=== PATIENT | female | born 1985 | race Caucasian/White ===

== ENCOUNTER 2020-09-26 20:53 | Emergency (ER) | payer OTHER ==
[~2020-09-26] VITALS: Ht 149.9 cm; Wt 75.5 kg
[2020-09-26 21:46] LABS: HEMATOCRIT 42.2 % (37.0-47.0); HEMOGLOBIN 13.6 g/dl (12.0-16.0); IMMATURE GRANULOCYTES 0.3 % (0.0-5.0); MEAN CELL VOLUME 87.9 fL CALC (80.0-100.0); MEAN CORPUSCULAR HGB 28.3 pG CALC (26.0-32.0); MEAN CORPUSCULAR HGB CONC 32.2 g/dL CAL (32.0-36.0); NEUT# 3.99 thou/uL (2.00-7.15); RED BLOOD COUNT 4.8 mill/uL (4.20-5.60); RED CELL DISTRI WIDTH 12.1 % (11.5-15.5)
[2020-09-26 21:48] LABS: URINE BILIRUBIN - DIPSTICK NEGATIVE (NEGATIVE); URINE BLOOD DIPSTICK TRACE-INTACT (NEGATIVE); URINE COLOR YELLOW; URINE GLUCOSE - DIPSTICK 250 mg/dL (NEGATIVE); URINE KETONE NEGATIVE (NEGATIVE); URINE LEUK ESTERASE NEGATIVE (NEGATIVE); URINE PROTEIN - DIPSTICK 30 mg/dL (NEG-TRACE); URINE UROBILINOGEN - DIPSTICK 0.2 E.U./dL (0.2)
[2020-09-26 21:49] LABS: URINE NITRITE - DIPSTICK NEGATIVE (Negative)
[2020-09-26 22:06] LABS: ALBUMIN 3.6 g/dL (3.2-5.0); ALKALINE PHOSPHATASE 106 u/l (38-126); ANION GAP 16 (6-22 (CALC)); BILIRUBIN, TOTAL 0.3 mg/dL (0.0-1.4); BUN 5 mg/dL (7-17); BUN/CREATININE RATIO 10 (12-20 (CALC)); CARBON DIOXIDE 22 mmol/l (22-30); CHLORIDE 96 mmol/l (95-108); CREATININE 0.5 mg/dL (0.5-1.0); GFR > 60 ML/MIN (>=60 (CALC)); GFR FOR AFR.AMER. > 60 ML/MIN (>=60 (CALC)); SGOT/AST 35 u/l (14-36); SODIUM 130 mmol/l (137-146); TOTAL PROTEIN 6.9 g/dL (6.3-8.2)
[2020-09-26 22:22] LABS: URINE SQUAMOUS EPITHELIAL CELL FEW EPI/hpf (0-FEW); URINE WBC 0-2 WBC/hpf (0-5)
[2020-09-26] MEDS ORDERED: METFORMIN HCL1000 M1 PO (23:13)
[2020-09-26] MEDS ORDERED: HUMULIN N100 UNIT/M SC (23:13)
[2020-09-26] MEDS ORDERED: PHENERGAN25 MG RE (23:13)
[2020-09-26 23:30] VITALS: BP 134/80
== END 2020-09-26 23:33 | disposition home or self-care (01) | DRG 179 ==
LOC: ED 20:53
PROVIDERS: Family Medicine
DX: U07.1 COVID-19 (principal); E10.65 Type 1 diabetes mellitus with hyperglycemia; T38.3X6A Underdosing of insulin and oral hypoglycemic [antidiabetic] drugs, initial encounter; Z91.128 Patient's intentional underdosing of medication regimen for other reason; Z79.4 Long term (current) use of insulin

== ENCOUNTER 2021-04-02 14:29 | Emergency (ER) | payer SELFPAY ==
[~2021-04-02] VITALS: Ht 149.9 cm; Wt 64.0 kg
[~2021-04-02 14:29] MED LIST: HUMULIN N100 UNIT/M SC; METFORMIN HCL1000 M1 PO; PHENERGAN25 MG RE
[2021-04-02 14:58] LABS: URINE BILIRUBIN - DIPSTICK NEGATIVE (NEGATIVE); URINE BLOOD DIPSTICK LARGE (NEGATIVE); URINE COLOR YELLOW; URINE GLUCOSE - DIPSTICK NEGATIVE (NEGATIVE); URINE KETONE NEGATIVE (NEGATIVE); URINE LEUK ESTERASE NEGATIVE (NEGATIVE); URINE PROTEIN - DIPSTICK 30 mg/dL (NEG-TRACE); URINE SPECIFIC GRAVITY >=1.030; URINE UROBILINOGEN - DIPSTICK 0.2 E.U./dL (0.2)
[2021-04-02 15:02] LABS: URINE NITRITE - DIPSTICK NEGATIVE (Negative)
[2021-04-02 15:05] LABS: URINE SQUAMOUS EPITHELIAL CELL MANY EPI/hpf (0-FEW); URINE WBC 0-2 WBC/hpf (0-5)
[2021-04-02 15:16] LABS: HEMATOCRIT 40.9 % (37.0-47.0); IMMATURE GRANULOCYTES 0.2 % (0.0-5.0); MEAN CELL VOLUME 89.9 fL CALC (80.0-100.0); MEAN CORPUSCULAR HGB 28.6 pG CALC (26.0-32.0); MEAN CORPUSCULAR HGB CONC 31.8 g/dL CAL (32.0-36.0); NEUT# 4.77 thou/uL (2.00-7.15); RED BLOOD COUNT 4.55 mill/uL (4.20-5.60); RED CELL DISTRI WIDTH 12.9 % (11.5-15.5)
[2021-04-02 15:39] LABS: ALBUMIN 3.8 g/dL (3.2-5.0); ALKALINE PHOSPHATASE 88 u/l (38-126); ANION GAP 11 (6-22 (CALC)); BILIRUBIN, TOTAL 0.4 mg/dL (0.0-1.4); BUN 10 mg/dL (7-17); BUN/CREATININE RATIO 18 (12-20 (CALC)); CARBON DIOXIDE 27 mmol/l (22-30); CHLORIDE 104 mmol/l (95-108); CREATININE 0.6 mg/dL (0.5-1.0); GFR > 60 ML/MIN (>=60 (CALC)); GFR FOR AFR.AMER. > 60 ML/MIN (>=60 (CALC)); POTASSIUM 4.3 mmol/l (3.5-5.1); SGOT/AST 21 u/l (14-36); SODIUM 138 mmol/l (137-146); TOTAL PROTEIN 7.1 g/dL (6.3-8.2)
[2021-04-02 15:56] LABS: BETA-HCG, QUANT(RESULT NUMBER) <2 mIU/mL
[2021-04-02] MEDS ORDERED: NAPROXEN375 MG PO (16:10)
[2021-04-02 16:29] VITALS: BP 155/97
== END 2021-04-02 16:37 | disposition home or self-care (01) | DRG 761 ==
LOC: ED 14:29
DX: N94.6 Dysmenorrhea, unspecified (principal); E11.9 Type 2 diabetes mellitus without complications

== ENCOUNTER 2021-07-29 07:00 | Emergency (ER) | payer SELFPAY ==
[~2021-07-29] VITALS: Ht 149.9 cm; Wt 68.0 kg
[~2021-07-29 07:00] MED LIST changes: +NAPROXEN375 MG PO
[2021-07-29 07:08] VITALS: BP 166/120
[2021-07-29 07:16] VITALS: BP 175/99
[2021-07-29 07:44] LABS: HEMATOCRIT 39.9 % (37.0-47.0); HEMOGLOBIN 12.9 g/dl (12.0-16.0); IMMATURE GRANULOCYTES 0.3 % (0.0-5.0); MEAN CELL VOLUME 89.3 fL CALC (80.0-100.0); MEAN CORPUSCULAR HGB 28.9 pG CALC (26.0-32.0); MEAN CORPUSCULAR HGB CONC 32.3 g/dL CAL (32.0-36.0); NEUT# 6.09 thou/uL (2.00-7.15); RED BLOOD COUNT 4.47 mill/uL (4.20-5.60); RED CELL DISTRI WIDTH 12.3 % (11.5-15.5)
[2021-07-29 07:57] LABS: ALBUMIN 4.1 g/dL (3.2-5.0); ALKALINE PHOSPHATASE 119 u/l (38-126); ANION GAP 14 (6-22 (CALC)); BILIRUBIN, TOTAL 0.3 mg/dL (0.0-1.4); BUN 9 mg/dL (7-17); BUN/CREATININE RATIO 17 (12-20 (CALC)); CARBON DIOXIDE 24 mmol/l (22-30); CHLORIDE 102 mmol/l (95-108); CREATININE 0.5 mg/dL (0.5-1.0); ETHYL ALCOHOL 0 mg/dl (0-30); GFR FOR AFR.AMER. > 60 ML/MIN (>=60 (CALC)); GFR OTHER RACES > 60 ML/MIN (>=60 (CALC)); POTASSIUM 3.9 mmol/l (3.5-5.1); SGOT/AST 30 u/l (14-36); SODIUM 137 mmol/l (137-146); TOTAL PROTEIN 7.1 g/dL (6.3-8.2)
[2021-07-29 08:22] VITALS: BP 175/99
== END 2021-07-29 08:23 | disposition left against medical advice (07) | DRG 552 ==
LOC: ED 07:00
PROVIDERS: Family Medicine
DX: M54.2 Cervicalgia (principal); E11.9 Type 2 diabetes mellitus without complications; F15.10 Other stimulant abuse, uncomplicated; Z91.19 Patient's noncompliance with other medical treatment and regimen

== ENCOUNTER 2021-10-07 11:09 | Emergency (ER) | payer SELFPAY ==
[~2021-10-07] VITALS: Ht 149.9 cm; Wt 68.0 kg
[2021-10-07] MEDS ORDERED: PREDNISONE50 MG PO ×2 (11:13→11:32)
[2021-10-07] MEDS ORDERED: AMOXICILLIN500 MG PO ×2 (11:13→11:32)
[2021-10-07] MEDS ORDERED: PERMETHRIN5 % EX ×2 (11:13→11:32)
[2021-10-07] MEDS ORDERED: ALL DAY10 MG PO ×2 (11:13→11:32)
== END 2021-10-07 11:50 | disposition home or self-care (01) | DRG 607 ==
LOC: ED 11:09
DX: L98.9 Disorder of the skin and subcutaneous tissue, unspecified (principal); E11.9 Type 2 diabetes mellitus without complications

== ENCOUNTER 2021-11-08 15:12 | Emergency (ER) | payer OTHER ==
[~2021-11-08] VITALS: Ht 149.9 cm; Wt 66.0 kg
[~2021-11-08 15:12] MED LIST changes: +ALL DAY10 MG PO; +AMOXICILLIN500 MG PO; +PERMETHRIN5 % EX; +PREDNISONE50 MG PO
[2021-11-08 16:16] LABS: HEMATOCRIT 39.4 % (37.0-47.0); IMMATURE GRANULOCYTES 0.3 % (0.0-5.0); MEAN CELL VOLUME 84.4 fL CALC (80.0-100.0); MEAN CORPUSCULAR HGB 27.8 pG CALC (26.0-32.0); NEUT# 9.94 thou/uL (2.00-7.15); RED BLOOD COUNT 4.67 mill/uL (4.20-5.60); RED CELL DISTRI WIDTH 12.8 % (11.5-15.5)
[2021-11-08 16:35] LABS: ALBUMIN 4.6 g/dL (3.2-5.0); ALKALINE PHOSPHATASE 110 u/l (38-126); BUN 13 mg/dL (7-17); BUN/CREATININE RATIO 19 (12-20 (CALC)); CARBON DIOXIDE 24 mmol/l (22-30); CHLORIDE 100 mmol/l (95-108); CREATININE 0.7 mg/dL (0.5-1.0); GFR FOR AFR.AMER. > 60 ML/MIN (>=60 (CALC)); GFR OTHER RACES > 60 ML/MIN (>=60 (CALC)); SGOT/AST 31 u/l (14-36); SODIUM 139 mmol/l (137-146); TOTAL PROTEIN 7.6 g/dL (6.3-8.2)
[2021-11-08 16:36] LABS: ANION GAP 20 (6-22 (CALC)); BILIRUBIN, TOTAL 0.6 mg/dL (0.0-1.4); POTASSIUM 4.9 mmol/l (3.5-5.1)
[2021-11-08 16:51] LABS: BETA-HCG, QUANT(RESULT NUMBER) <2 mIU/mL
[2021-11-08 20:50] LABS: URINE BILIRUBIN - DIPSTICK NEGATIVE (NEGATIVE); URINE BLOOD DIPSTICK TRACE-LYSED (NEGATIVE); URINE COLOR YELLOW; URINE GLUCOSE - DIPSTICK 100 mg/dL (NEGATIVE); URINE KETONE NEGATIVE (NEGATIVE); URINE LEUK ESTERASE NEGATIVE (NEGATIVE); URINE PROTEIN - DIPSTICK 30 mg/dL (NEG-TRACE); URINE SPECIFIC GRAVITY >=1.030; URINE UROBILINOGEN - DIPSTICK 0.2 E.U./dL (0.2)
[2021-11-08 20:52] LABS: URINE NITRITE - DIPSTICK NEGATIVE (Negative); URINE RBC 0-2 RBC/hpf (0-5); URINE SQUAMOUS EPITHELIAL CELL RARE EPI/hpf (0-FEW); URINE WBC 0-2 WBC/hpf (0-5)
[2021-11-09 17:02] VITALS: BP 133/94
== END 2021-11-09 17:02 | DRG 897 ==
LOC: ED 15:12
PROVIDERS: Family Medicine
DX: F15.159 Other stimulant abuse with stimulant-induced psychotic disorder, unspecified (principal); E11.65 Type 2 diabetes mellitus with hyperglycemia; Z20.822 Contact with and (suspected) exposure to COVID-19

== ENCOUNTER 2022-09-25 10:13 | Emergency (ER) | payer SELFPAY ==
[~2022-09-25] VITALS: Ht 149.9 cm; Wt 73.0 kg
[2022-09-25 10:20] VITALS: BP 150/101
[2022-09-25 10:30] VITALS: BP 141/94
[2022-09-25 11:02] LABS: BASO% 0.4 % (0-3); EOS% 0.7 % (0-8); HEMATOCRIT 38.5 % (37.0-47.0); HEMOGLOBIN 12.2 g/dl (12.0-16.0); IMMATURE GRANULOCYTES 0.3 % (0.0-5.0); LYMPH% 25.3 % (15-41); MEAN CELL VOLUME 88.3 fL CALC (80.0-100.0); MEAN CORPUSCULAR HGB CONC 31.7 g/dL CAL (32.0-36.0); MONO% 7.8 % (2-13); NEUT# 5.83 thou/uL (2.00-7.15); NEUT% 65.5 % (42-76); RED BLOOD COUNT 4.36 mill/uL (4.20-5.60); RED CELL DISTRI WIDTH 14.4 % (11.5-15.5)
[2022-09-25 11:10] LABS: ALBUMIN 3.9 g/dL (3.2-5.0); ALKALINE PHOSPHATASE 112 u/l (38-126); BILIRUBIN, TOTAL 0.4 mg/dL (0.02-1.3); BUN 17 mg/dL (7-17); BUN/CREATININE RATIO 30 (12-20 (CALC)); CHLORIDE 105 mmol/l (95-108); CREATININE 0.6 mg/dL (0.5-1.0); GFR FOR AFR.AMER. > 60 ML/MIN (>=60 (CALC)); GFR OTHER RACES > 60 ML/MIN (>=60 (CALC)); POTASSIUM 4.5 mmol/l (3.5-5.1); SGOT/AST 34 u/l (14-36); TOTAL PROTEIN 6.8 g/dL (6.3-8.2)
[2022-09-25 11:11] LABS: ANION GAP 16 (6-22 (CALC)); CARBON DIOXIDE 16 mmol/l (22-30); SODIUM 132 mmol/l (137-146)
[2022-09-25 11:15] VITALS: BP 137/81
[2022-09-25] MEDS ORDERED: METFORMIN HCL500 M1 PO (11:26)
[2022-09-25] MEDS ORDERED: PREDNISONE50 MG PO (11:26)
[2022-09-25] MEDS ORDERED: TERBINAFINE250 M1 PO (11:29)
[2022-09-25 11:58] VITALS: BP 137/81
== END 2022-09-25 12:21 | disposition home or self-care (01) | DRG 607 ==
LOC: ED 10:13
PROVIDERS: Family Medicine
DX: R21 Rash and other nonspecific skin eruption (principal); I10 Essential (primary) hypertension; E11.9 Type 2 diabetes mellitus without complications; E66.9 Obesity, unspecified; T38.3X6A Underdosing of insulin and oral hypoglycemic [antidiabetic] drugs, initial encounter; Z91.128 Patient's intentional underdosing of medication regimen for other reason

== ENCOUNTER 2024-04-15 05:08 | Emergency (ER) | payer SELFPAY ==
[~2024-04-15] VITALS: Ht 149.9 cm; Wt 65.0 kg
[~2024-04-15 05:08] MED LIST changes: +METFORMIN HCL500 M1 PO; +TERBINAFINE250 M1 PO
[2024-04-15] MEDS ORDERED: cloNIDine HCL 0.1 MG/TAB PO ONE (05:20)
[2024-04-15 05:34] VITALS: BP 167/107
[2024-04-15 05:44] LABS: BASO% 0.5 % (0-3); EOS% 0.1 % (0-8); HEMATOCRIT 39.5 % (37.0-47.0); HEMOGLOBIN 12.2 g/dl (12.0-16.0); IMMATURE GRANULOCYTES 0.1 % (0.0-5.0); LYMPH% 19.8 % (15-41); MEAN CELL VOLUME 91.9 fL CALC (80.0-100.0); MEAN CORPUSCULAR HGB 28.4 pG CALC (26.0-32.0); MEAN CORPUSCULAR HGB CONC 30.9 g/dL CAL (32.0-36.0); MONO% 5.8 % (2-13); NEUT# 7.52 thou/uL (2.00-7.15); NEUT% 73.7 % (42-76); RED BLOOD COUNT 4.3 mill/uL (4.20-5.60)
[2024-04-15 05:48] LABS: URINE BILIRUBIN - DIPSTICK Negative (NEGATIVE); URINE BLOOD DIPSTICK Large (NEGATIVE); URINE GLUCOSE - DIPSTICK 250 mg/dL (NEGATIVE); URINE KETONE Trace mg/dL (NEGATIVE); URINE LEUK ESTERASE Negative (NEGATIVE); URINE PH 5.5 (4.5-8.0); URINE PROTEIN - DIPSTICK 100 mg/dL (NEG-TRACE); URINE SPECIFIC GRAVITY >=1.030; URINE UROBILINOGEN - DIPSTICK 0.2 E.U./dL (0.2)
[2024-04-15 05:49] LABS: ALBUMIN 4.4 g/dL (3.2-5.0); ALKALINE PHOSPHATASE 101 u/l (38-126); ANION GAP 12 (6-22 (CALC)); BILIRUBIN, TOTAL 0.5 mg/dL (0.02-1.3); BUN 15 mg/dL (7-17); BUN/CREATININE RATIO 27 (12-20 (CALC)); CARBON DIOXIDE 25 mmol/l (22-30); CHLORIDE 103 mmol/l (95-108); CREATININE 0.6 mg/dL (0.5-1.0); ESTIMATED GFR 118 ML/MIN (>=90 (CALC)); ETHYL ALCOHOL 0 mg/dl (0-30); MAGNESIUM 1.7 mg/dL (1.6-2.3); SODIUM 136 mmol/l (137-146); TOTAL PROTEIN 7.6 g/dL (6.3-8.2)
[2024-04-15 05:49] LABS: URINE COLOR Dark yellow
[2024-04-15 05:50] LABS: URINE NITRITE - DIPSTICK Negative (Negative)
[2024-04-15 05:51] VITALS: BP 158/102
[2024-04-15 05:53] LABS: URINE BACTERIA MODERATE hpf; URINE EPITHELIAL CELLS FEW EPI/hpf (0-FEW); URINE RBC >100 RBC/hpf (0-5)
[2024-04-15 05:54] LABS: SGOT/AST 44 u/l (14-36)
[2024-04-15 06:00] VITALS: BP 163/100
[2024-04-15 06:02] VITALS: BP 158/104
[2024-04-15] MEDS ORDERED: BACTRIM DS1 TAB PO (06:03)
[2024-04-15] MEDS ORDERED: SULFAMETHOXAZOLE W/TRIMETHOPRI 1 COMBO TAB PO ONE (06:05)
[2024-04-15 06:10] VITALS: BP 158/104
== END 2024-04-15 06:10 | DRG 880 ==
LOC: ED 05:08
PROVIDERS: Family Medicine
DX: R45.851 Suicidal ideations (principal); F15.10 Other stimulant abuse, uncomplicated; N39.0 Urinary tract infection, site not specified; B95.1 Streptococcus, group B, as the cause of diseases classified elsewhere; I10 Essential (primary) hypertension; E11.9 Type 2 diabetes mellitus without complications